=== PATIENT | female | born 1960 | race Caucasian/White ===

== ENCOUNTER → 2016-06-20 | Outpatient (CLI) | payer OTHER ==
[~2016-06-20] MED LIST: ALEVE220 MG PO; CELEXA20 MG PO; ESTRADIOL 1 MG T1 M1 PO; PRILOSEC OTC20 MG PO; ZYRTEC10 M2 PO
--- NOTE | ~2016-06-20 | EKG ---
[address] [address] ELECTROCARDIOGRAM REPORT Name: ISIDRA KATHLEEN Room #: [facility]#: [id number] Admission: 06/20/16 Attend Phys: Lopez Pedro MD Discharge: Date of : 64 Report #: [id number] THIS REPORT FOR: //name// [facility] Test Date: 2016-06-20 Test Time: 13:28:42 Pat Name: ISIDRA KATHLEEN Department: Room: Gender: F [employer]: CASIE : 1960 Requested By: Lopez Pedro Order Number: [id number] MD: Norman Gilmore Measurements Intervals Goff Rate: 84 P: 17 RI: 159 QRS: 9 QRSD: 96 T: 1 QT: 379 QTc: 449 Interpretive Statements Sinus rhythm Borderline T wave abnormalities No previous ECG available for comparison Electronically Signed On 06-21-2016 8:47:30 CDT by Norman Gilmore [email or web address] <ELECTRONICALLY SIGNED> By: Norman Gilmore MD, [facility] 06/21/16 0847 [id number] [id number] Norman Gilmore MD, FACC /EPI
== END | disposition home or self-care (01) ==
LOC: LITH 12:46
DX: N20.1 Calculus of ureter (principal); K21.9 Gastro-esophageal reflux disease without esophagitis; Z90.710 Acquired absence of both cervix and uterus